=== PATIENT | female | born 1970 | race Caucasian/White ===

== ENCOUNTER 2018-07-15 03:16 | Inpatient (IN) | payer OTHER ==
[~2018-07-15] VITALS: Ht 160 cm; Wt 61.7 kg
--- NOTE | 2018-07-15 03:35 | NUR ---
RN MS ADMITTING NOTES PT ADMITTED FORM [facility] [place], PT AWAKE ALERT ORIENTED X4, BREATHING EVEN AND UNLABORED ON ROOM AIR. NO COMPLAINT OF PAIN OR DISCOMFORT AT THIS TIME, NGT IN PLACE AND CLAMPED. IV ACCESS ON THE R AC 20G SL. BED IN LOWEST LOCKED POSITION, CALL LIGHT WITHIN REACH AT ALL TIMES, WILL CONTINUE TO MONITOR FREQUENTLY
[2018-07-15 03:40] VITALS: BP 157/87
--- NOTE | 2018-07-15 03:55 | NUR ---
PAGED DR JEFFRIES FOR ADMITTING ORDERS
[2018-07-15] MEDS ORDERED: CELE200C PO (04:14)
[2018-07-15] MEDS ORDERED: METF-441 PO (04:14)
[2018-07-15] MEDS ORDERED: CHOL200026 PO (04:14)
[2018-07-15] MEDS ORDERED: MELA5TAB PO (04:15)
[2018-07-15] MEDS ORDERED: CYCL25CA12 PO (04:15)
[2018-07-15] MEDS ORDERED: DEXA4TAB PO (04:15)
[2018-07-15] MEDS ORDERED: IV D5/0.45 NACL 1,000 ML IV PRN (04:53)
[2018-07-15] MEDS ORDERED: ONDANSETRON HCL/PF 4 MG/2 ML VIAL IVP PRN (05:00)
[2018-07-15] MEDS ORDERED: Z GUARD REMEDY 2 OZ OINT TP PRN (05:00)
[2018-07-15] MEDS ORDERED: HYDROMORPHONE INJ 2 MG/ML DISP.SYRIN IV PRN (05:00)
[2018-07-15] MEDS ORDERED: HYDROCODONE/APAP 5/325MG 1 EACH TABLET PO PRN (05:00)
[2018-07-15] MEDS ORDERED: MAG HYDROX/AL HYDROX/SIMETH 30 ML UDC PO PRN (05:00)
[2018-07-15] MEDS ORDERED: MAGNESIUM HYDROXIDE 30 ML UDC PO PRN (05:00)
[2018-07-15] MEDS ORDERED: ACETAMINOPHEN 325 MG TABLET PO PRN (05:00)
[2018-07-15] MEDS ORDERED: MORPHINE SULFATE INJ 2 MG/ML DISP.SYRIN IV PRN (05:00)
[2018-07-15] MEDS ORDERED: ZOLPIDEM TARTRATE 5 MG TABLET PO PRN (05:00)
--- NOTE | 2018-07-15 06:36 | NUR ---
WATERPROOFING SUPERVISOR CLOSING NOTES PT REMAINS IN BED AWAKE ALERT ORIENTED X4, BREATHING EVEN AND UNLABORED ON ROOM AIR. NO COMPLAINT OF PAIN OR DISCOMFORT AT THIS TIME, NGT REMAINS IN PLACE AND CLAMPED. IV ACCESS ON THE R AC 20G WITH D51/2NS @125ML/HR. BED IN LOWEST LOCKED POSITION, CALL LIGHT WITHIN REACH AT ALL TIMES, WILL ENDORSE TO DAY NURSE FOR MARIA LUZ.
--- NOTE | 2018-07-15 06:37 | NUR ---
COUTURE ALTERATIONS DRESSMAKER READING SR IN THE 70S WITH INVERTED T WAVE
[2018-07-15 07:20] LABS: BASOPHILS % (AUTO) 0.5 % (0.0-2.0); EOSINOPHILS % (AUTO) 0.8 % (0.0-6.0); HEMATOCRIT 35 % (33-45); HEMOGLOBIN 11.5 g/dL (11.5-14.8); LYMPHOCYTES # (AUTO) 0.9 /CMM (0.8-4.8); LYMPHOCYTES % (AUTO) 20.1 % (20.0-44.0); MEAN CORPUSCULAR HGB CONC 33 g/dl (31.0-36.0); MEAN CORPUSCULAR VOLUME 91 fL (82-100); MONOCYTES # (AUTO) 0.6 /CMM (0.1-1.30); MONOCYTES % (AUTO) 13.4 % (2.0-12.0); NEUTROPHILS # (AUTO) 2.8 /CMM (1.8-8.9); NEUTROPHILS % (AUTO) 65.2 % (43.0-81.0); PLATELET COUNT (AUTO) 251 /CMM (150-450); RED BLOOD CELL COUNT(AUTO) 3.84 MIL/uL (4.0-5.2); WHITE BLOOD COUNT (AUTO) 4.4 K/uL (4.3-11.0)
[2018-07-15 07:33] LABS: ALBUMIN 3.6 g/dL (3.4-5.0); BILIRUBIN,TOTAL 0.4 mg/dL (0.2-1.0); CALCIUM, SERUM 9.2 mg/dL (8.5-10.1); CREATININE 0.7 mg/dL (0.6-1.3); TOTAL PROTEIN, SERUM 6.8 g/dL (6.4-8.2)
--- NOTE | 2018-07-15 07:57 | NUR ---
CUSTOM VAN CONVERTER OPENING NOTES Received patient on room air, no sob noted. Patient remains a/o x4, no complaints of pain at this time. NGT on the left nares, remains clamped. bed in the lowest setting, call light within reach.
[2018-07-15 08:00] VITALS: BP 148/81
[2018-07-15] MEDS ORDERED: PANTOPRAZOLE 40 MG VIAL IV SCH ×2 (09:00)
[2018-07-15] MEDS ORDERED: IV NS 0.9% 1,000 ML IV PRN (09:00)
[2018-07-15] MEDS ORDERED: HYDROMORPHONE 1 MG/1 ML DISP.SYRIN IV PRN (09:00)
[2018-07-15] MEDS: FAMOTIDINE/PF INJ 20 MG/2 ML VIAL IV SCH ×2 (10:21→16:08)
[2018-07-15 12:00] VITALS: BP 136/94
--- NOTE | 2018-07-15 14:20 | NUR ---
LIBRARY MONITOR NOTES Started patient on intermittent naso gastric suctioning per Dr. Palmer
[2018-07-15 16:00] VITALS: BP 163/104
--- NOTE | 2018-07-15 18:58 | NUR ---
CATHODIC PROTECTION TECHNICIAN CLOSING NOTES Patient remains on room air, no sob noted. Patient denies pain at this time. Patient remains a.o x4. Patient's vital signs stable. Patient refused urine test for test, stated she was abstinent. Bed at the lowest setting, call light within reach. IV flowing with no obstruction and free flowing.
--- NOTE | 2018-07-15 19:29 | NUR ---
BEHAVIORAL SCIENCES DEPARTMENT CHAIR OPENING NOTES RECEIVED PT AWAKE ALERT ORIENTED X4, BREATHING EVEN AND UNLABORED ON ROOM AIR. NO COMPLAINT OF PAIN OR DISCOMFORT AT THIS TIME, NGT IN PLACE WITH INTERMITTENT . IV ACCESS ON THE R AC 20G SL. TELE MONITOR IN PLACE NSR IN THE 80s. BED IN LOWEST LOCKED POSITION, CALL LIGHT WITHIN REACH AT ALL TIMES, WILL CONTINUE TO MONITOR FREQUENTLY
[2018-07-15 20:00] VITALS: BP 142/97
[2018-07-15] MEDS: BLOOD SUGAR DIAGNOSTIC 1 EACH STRIP IN SCH (22:07)
[2018-07-15] MEDS: IV D5/ 0.9% NACL 1,000 ML IV PRN (22:18)
[2018-07-16 00:32] VITALS: BP 136/90
[2018-07-16 04:00] VITALS: BP 130/97
[2018-07-16 05:16] VITALS: BP 136/90
--- NOTE | 2018-07-16 06:25 | NUR ---
FLY WORKER CLOSING NOTES PT REMAINS IN BED AWAKE ALERT ORIENTED X4, BREATHING EVEN AND UNLABORED ON ROOM AIR. NO COMPLAINT OF PAIN OR DISCOMFORT AT THIS TIME, NGT IN PLACE WITH INTERMITTENT . IV ACCESS ON THE R AC 20G WITH D5NS @125ML/HR. TELE MONITOR IN PLACE NSR IN THE 70s. BED IN LOWEST LOCKED POSITION, CALL LIGHT WITHIN REACH AT ALL TIMES, WILL ENDORSE TO DAY NURSE FOR MARIA LUZ
[2018-07-16] MEDS: IV D5/ 0.9% NACL 1,000 ML IV PRN ×2 (06:46→19:28)
[2018-07-16 06:53] LABS: BASOPHILS % (AUTO) 0.3 % (0.0-2.0); EOSINOPHILS % (AUTO) 1.7 % (0.0-6.0); HEMATOCRIT 36 % (33-45); HEMOGLOBIN 11.9 g/dL (11.5-14.8); LYMPHOCYTES # (AUTO) 0.9 /CMM (0.8-4.8); LYMPHOCYTES % (AUTO) 15.6 % (20.0-44.0); MEAN CORPUSCULAR HGB CONC 33 g/dl (31.0-36.0); MEAN CORPUSCULAR VOLUME 91 fL (82-100); MONOCYTES # (AUTO) 0.8 /CMM (0.1-1.30); MONOCYTES % (AUTO) 14.2 % (2.0-12.0); NEUTROPHILS # (AUTO) 3.8 /CMM (1.8-8.9); NEUTROPHILS % (AUTO) 68.2 % (43.0-81.0); PLATELET COUNT (AUTO) 232 /CMM (150-450); RED BLOOD CELL COUNT(AUTO) 3.95 MIL/uL (4.0-5.2); WHITE BLOOD COUNT (AUTO) 5.6 K/uL (4.3-11.0)
[2018-07-16 07:06] LABS: CALCIUM, SERUM 8.4 mg/dL (8.5-10.1); CREATININE 0.7 mg/dL (0.6-1.3); MAGNESIUM 1.7 mg/dL (1.8-2.4); PHOSPHORUS 3.6 mg/dL (2.5-4.9); POTASSIUM 3.8 mmol/L (3.5-5.1)
[2018-07-16 07:11] LABS: THYROID STIMULATING HORMONE 2.911 uIU/mL (0.358-3.74)
--- NOTE | 2018-07-16 07:50 | NUR ---
FRUIT TESTER NOTES Received Patient comfortable and resting in bed. A/O x 4. VS stable with no acute distress. Breathing even and unlabored on room air with no respiratory distress. Denies pain. NG-Tube on LEFT NOSTRIL in place and operational. Tele monitor in place and operational, reading SR with HR in the 90s. 20g PIV on RAC clean, dry, intact and flushing well with D5NS running at 125ml/hr. NPO precautions in place. Patient verbalizes understanding. Safety precautions in place. Bed locked and set to lowest position with side rails x 2 up. Will continue to monitor.
[2018-07-16 08:00] VITALS: BP 142/96
[2018-07-16] MEDS: FAMOTIDINE/PF INJ 20 MG/2 ML VIAL IV SCH ×2 (08:54→16:28)
[2018-07-16] MEDS: Magnesium 1GM/D5W 100ML PREMIX 100 ML IV SCH ×2 (11:05→11:58)
--- NOTE | 2018-07-16 11:30 | NUR ---
MS RN NOTES Tele monitor discontinued at this time. Patient in stable condition. Will continue to monitor.
--- NOTE | 2018-07-16 12:40 | NUR ---
MS RN NOTES Pain medication for moderate pain, per Patient request. Patient refused Morphine 2mg and Dilaudid 1mg IVP, per Patient, "these medications might be too strong". Unable to provided Watson d/t NPO precautions. Received new orders for Morphine 1mg PRN q4h for Moderate Pain, per MD. Order carried out. Will continue to monitor.
[2018-07-16] MEDS ORDERED: MORPHINE SULFATE INJ 2 MG/ML DISP.SYRIN IV PRN (13:00)
--- NOTE | 2018-07-16 13:42 | NUR ---
MS RN NOTES Patient taken to Radiology Dept. via wheelchair at this time.
[2018-07-16] MEDS ORDERED: DIATR MEGLU/DIATRIZOATE SODIUM 120 ML BOTTLE (GASTROGRAPHIN) ONE (13:53)
--- NOTE | 2018-07-16 15:57 | NUR ---
MS RN NOTES Patient returned from Radiology Dept. via wheelchair at this time. Patient comfortable in bed. VS stable. Patient stated tolerable mild ABDOMINAL pain. Resume intermittent suction via NGT. Friend at bedside. Will continue to monitor.
[2018-07-16 16:00] VITALS: BP 125/84
[2018-07-16 17:55] LABS: APPEARANCE,URINE CLEAR (CLEAR); BILIRUBIN,URINE NEGATIVE (NEGATIVE); BLOOD, URINE NEGATIVE Ery/uL (NEGATIVE); COLOR,URINE YELLOW (YELLOW); KETONES,URINE NEGATIVE (NEGATIVE); LEUKOCYTE ESTERASE ,URINE NEGATIVE (NEGATIVE); NITRITE, URINE NEGATIVE (NEGATIVE); PROTEIN,URINE NEGATIVE (NEGATIVE); UGLUCOSE NEGATIVE (NEGATIVE); UROBILINOGEN,URINE 0.2 EU/dL (0.2)
--- NOTE | 2018-07-16 19:10 | NUR ---
MS RN OPENING NOTES Received patient sitting up in bed, alert, oriented x 4. Breathing even and unlabored. Not in any distress, on room air. No complaints at this time. Peripheral IV infusing at 125mL/hr. Patient stable as endorsed by the morning RN. Will continue to monitor accordingly
--- NOTE | 2018-07-16 19:27 | NUR ---
MS RN CLOSING NOTES Patient comfortable and resting in bed. A/O x 4. VS stable with no acute distress. Breathing even and unlabored on room air with no respiratory distress. Patient states tolerable ABDOMINAL PAIN /10. Will endorse to oncoming shift. NG-Tube on LEFT NOSTRIL discontinued. NGT output noted redish brownish <10cc. 20g PIV on RAC clean, dry, intact and flushing well with D5NS running at 125ml/hr. All needs rendered at this time. Safety precautions in place. Bed locked and set to lowest position with side rails x 2 up. Will endorse plan of care to oncoming shift.
[2018-07-16 20:00] VITALS: BP 154/94
--- NOTE | 2018-07-16 20:45 | NUR ---
Met with patient, she has hx of Metastatic stage IV breast cancer currently on oral chemotherapy xeloda and cyclophosphamide. State she lives alone on the second floor condo with stairs access only. She is currently on disability, primary source of support are from her friends. States she ambulates with crutches and independent with adl's. Her pcp is Dr. Rosa Schumacher at [facility] in [place]. Her friend will provide ride when discharge. Addendum: 07/16/18 at 2044 by MARÍA CARRERA RN Amended: Links added.
--- NOTE | 2018-07-16 21:48 | NUR ---
RN NOTES Patient's temp. 100.9 degrees, cooling measures in place. Tylenol 650mg given as ordered. Will continue to monitor
[2018-07-16] MEDS: BLOOD SUGAR DIAGNOSTIC 1 EACH STRIP IN SCH (21:58)
--- NOTE | 2018-07-16 23:03 | NUR ---
RN NOTES Temperature rechecked- 97.8degrees
[2018-07-17] MEDS: IV D5/ 0.9% NACL 1,000 ML IV PRN (03:39)
--- NOTE | 2018-07-17 07:01 | NUR ---
MS RN CLOSING NOTES Patient comfortable and resting in bed. A/O x 4. Peripheral IV infusing at 125mL/hr. Not in any distress. No acute changes overnight. All needs attended and anticipated. Will endorse MARIA LUZ to oncoming RN
[2018-07-17 07:34] LABS: BASOPHILS % (AUTO) 0.5 % (0.0-2.0); EOSINOPHILS % (AUTO) 2.1 % (0.0-6.0); HEMATOCRIT 39 % (33-45); HEMOGLOBIN 12.6 g/dL (11.5-14.8); LYMPHOCYTES % (AUTO) 19.5 % (20.0-44.0); MEAN CORPUSCULAR HGB CONC 33 g/dl (31.0-36.0); MEAN CORPUSCULAR VOLUME 92 fL (82-100); MONOCYTES # (AUTO) 0.7 /CMM (0.1-1.30); MONOCYTES % (AUTO) 13.8 % (2.0-12.0); NEUTROPHILS # (AUTO) 3.3 /CMM (1.8-8.9); NEUTROPHILS % (AUTO) 64.1 % (43.0-81.0); PLATELET COUNT (AUTO) 253 /CMM (150-450); RED BLOOD CELL COUNT(AUTO) 4.21 MIL/uL (4.0-5.2); WHITE BLOOD COUNT (AUTO) 5.2 K/uL (4.3-11.0)
--- NOTE | 2018-07-17 07:50 | NUR ---
MS RN OPENING NOTES Received Patient comfortable and resting in bed. A/O x 4. VS stable with no acute distress. Breathing even and unlabored on room air with no respiratory distress. Denies pain. 20g PIV on RAC clean, dry, intact and flushing well with D5NS running at 125ml/hr. All needs rendered at this time. Safety precautions in place. Bed locked and set to lowest position with side rails x 2 up. Will continue to monitor.
[2018-07-17 08:00] VITALS: BP 128/80
[2018-07-17 08:05] LABS: CALCIUM, SERUM 8.8 mg/dL (8.5-10.1); CREATININE 0.8 mg/dL (0.6-1.3); MAGNESIUM 2.2 mg/dL (1.8-2.4); POTASSIUM 3.4 mmol/L (3.5-5.1)
[2018-07-17] MEDS: FAMOTIDINE/PF INJ 20 MG/2 ML VIAL IV SCH (09:12)
--- NOTE | 2018-07-17 15:25 | NUR ---
MS OFFICE MACHINE SERVICER APPRENTICE NOTES Patient discharged for home at this time. Patient in stable condition. Denies pain. Skin intact. Medication reconciliation and discharge orders reviewed and explained to Patient. Patient verbalized understanding. All belongings with Patient. Patient will follow up with PCP and Oncologist within one week. Patient escorted to the lobby via wheelchair for safety. Patient picked up by friend, Shira .
== END 2018-07-17 15:30 | disposition home or self-care (01) | DRG 247 ==
LOC: MED 03:22 → TELE 06:14 → MED 07-16 09:42
PROVIDERS: ADMIT Nurse Practitioner Acute Care; ATTEND Nurse Practitioner Acute Care
DX: K56.609 Unspecified intestinal obstruction, unspecified as to partial versus complete obstruction (principal); C79.9 Secondary malignant neoplasm of unspecified site; C50.919 Malignant neoplasm of unspecified site of unspecified female breast; R73.9 Hyperglycemia, unspecified; K56.7 Ileus, unspecified; Z79.899 Other long term (current) drug therapy
CPT/HCPCS: 36415; 74018; 74250-TC; 80048-TC; 80053-TC; 80061-TC; 81000-TC; 82962-TC; 83735-TC; 84100-TC; 84443-TC; 84703-TC; 85025-TC; 87081-TC; G0378; J1170; J2270; J3475; J3490; J7030; J7042; Q9963